=== PATIENT | male | born 1960 | race Caucasian/White ===

== ENCOUNTER 2018-10-11 12:49 | Emergency (ER) | payer OTHER ==
[~2018-10-11] VITALS: Ht 182.9 cm; Wt 98.4 kg
[2018-10-11 12:56] VITALS: BP 129/87
[2018-10-11] MEDS ORDERED: KEFLEX500 M1 PO (13:27)
== END 2018-10-11 13:36 | disposition home or self-care (01) ==
LOC: M.ERS 12:49
DX: S60.450A Superficial foreign body of right index finger, initial encounter (principal); W45.8XXA Other foreign body or object entering through skin, initial encounter; Y93.89 Activity, other specified; Y92.89 Other specified places as the place of occurrence of the external cause; Y99.8 Other external cause status